=== PATIENT | female | born 1985 | race African-American/Black ===

== ENCOUNTER 2021-05-10 08:44 | Emergency (ER) | payer SELFPAY ==
[~2021-05-10] VITALS: Ht 180.3 cm; Wt 83.0 kg
[2021-05-10 09:09] VITALS: BP 126/89
[2021-05-10] MEDS ORDERED: IBUP-2029 MT (09:31)
[2021-05-10] MEDS ORDERED: CYCL10TA7 MT (09:32)
== END 2021-05-10 09:48 | disposition home or self-care (01) ==
LOC: ER 08:44
DX: R51.9 Headache, unspecified (principal); M54.50 Low back pain, unspecified
CPT/HCPCS: 81025; 99282; 99283

== ENCOUNTER 2024-04-13 17:22 | Emergency (ER) | payer SELFPAY ==
[~2024-04-13] VITALS: Ht 180.3 cm; Wt 100.7 kg
[~2024-04-13 17:22] MED LIST: CYCL10TA21 MT; IBUP-2029 MT
[2024-04-13 17:27] VITALS: O2SAT 98
[2024-04-13] MEDS: METHOCARBAMOL 500MG TABLET PO ONE (18:54)
[2024-04-13] MEDS: KETOROLAC 30MG/ML VIAL IM ONE (18:54)
[2024-04-13] MEDS ORDERED: METH-653 MT (19:04)
[2024-04-13] MEDS ORDERED: IBUP-2029 MT (19:04)
[2024-04-13 19:48] VITALS: BP 128/78; PULSE 66; RESP 16; TEMP 36.94740; O2SAT 99
== END 2024-04-13 19:50 | disposition home or self-care (01) ==
LOC: ER 17:22
DX: S33.5XXA Sprain of ligaments of lumbar spine, initial encounter (principal); Z79.899 Other long term (current) drug therapy; V43.52XA Car driver injured in collision with other type car in traffic accident, initial encounter; Y92.410 Unspecified street and highway as the place of occurrence of the external cause; Y93.89 Activity, other specified; Y99.8 Other external cause status
CPT/HCPCS: 99283; 96372; J1885; 96375